=== PATIENT | female | born 1960 | race Caucasian/White ===

== ENCOUNTER 2020-10-05 14:07 | Outpatient (REF) | payer OTHER, SELFPAY ==
--- NOTE | ~2020-10-05 | MM_ITS ---
EXAMINATION: MM SCREENING DIGITAL BREAST TOMOSYNTHESIS, BILATERAL CLINICAL INFORMATION: Screening. Asymptomatic. The lifetime risk of breast cancer based on the Tyrer-Cuzick Model is 9%. COMPARISON: Mammography: 08/24/2017, 05/17/2016 TECHNIQUE: Digital breast tomosynthesis is performed in both the craniocaudal and mediolateral oblique views along with computer-aided detection (CAD). Synthesized 2D images are generated from the tomosynthesis. FINDINGS: The breasts are extremely dense, which lowers the sensitivity of mammography (ACR BI-RADS breast composition Category d). There are no significant masses, abnormal calcifications, or other abnormalities. Parenchymal pattern is similar to prior studies. No significant changes. MM/MM tomosynthesis screening BI IMPRESSION: No mammographic evidence of malignancy. ASSESSMENT: BI-RADS 1: Negative RECOMMENDATION: Routine annual mammography screening. This patient's information was entered into a reminder system with a target due date for their next mammogram.
--- NOTE | ~2020-10-05 | MM_ITS ---
EXAMINATION: BONE DENSITOMETRY CLINICAL INDICATION: Screening for osteoporosis. COMPARISON: None (current study represents initial baseline exam). TECHNIQUE: Using a Tray DXA System (software version: 13.1) manufactured by [employer], dual-energy x-ray absorptiometry was performed of the lumbar spine and left hip. The images are of good technical quality. Summary results are attached. FINDINGS: AP SPINE L1-L4: BMD 0.912 g/cm2, Z-score -0.7, T-score -2.2, osteopenia. LEFT FEMUR, NECK: BMD 0.863 g/cm2, Z-score 0.2, T-score -1.3, osteopenia. LEFT FEMUR, TOTAL: BMD 0.765 g/cm2, Z-score -0.8, T-score -1.9, osteopenia. IDENTIFIED RISK FACTORS: Menopause, low body weight, low calcium intake. HISTORY OF FRACTURE: None listed. MEDICATIONS: None listed. MM/XR DEXA axial skeleton IMPRESSION: 1. DIAGNOSIS: Osteopenia based on the lowest T-score value of -2.2 in the lumbar spine applying World Health Organization criteria. 2. 10-YEAR FRACTURE RISK PREDICTION, FRAX: Major osteoporotic fracture (clinical spine, forearm, hip or shoulder) 5.7%. Hip fracture 0.4%. 3. Treatment Recommendations: NOF guidelines recommend consideration for treatment in postmenopausal women and men age 50 and older presenting with the following: -A hip or vertebral (clinical or morphometric) fracture. -T-score less than or equal to -2.5 at the femoral neck or spine after appropriate evaluation to exclude secondary causes. -Low bone mass at the hip or spine and a 10-year fracture probability by FRAX of greater than or equal to 3% for hip fracture or greater than or equal to 20% for major osteoporotic fracture based on the [place] adapted WHO algorithm. 4. Other Recommendations: All treatment decisions require clinical judgment and consideration of individual patient factors, including patient preferences, comorbidities, previous drug use, risk factors not captured in the FRAX model (e.g. frailty, falls, vitamin D deficiency, increased bone turnover, interval significant decline in bone density) and possible under or overestimation of fracture risk by FRAX. Additional medical evaluation for secondary cause of low bone mineral density may be appropriate. FUTURE SCAN RECOMMENDATION: People with diagnosed cases of osteoporosis or at high risk for fracture should have regular bone mineral density tests. For patients eligible for Medicare, routine testing is allowed once every 2 years. The testing frequency can be increased to one year for patients who have rapidly progressing disease, those who are receiving or discontinuing medical therapy to restore bone mass, or have additional risk factors.
== END 2020-10-05 14:08 | disposition home or self-care (01) ==
LOC: HO.MAMMO 14:07
PROVIDERS: PCP Internal Medicine Medical Oncology; Visit Provider Internal Medicine Medical Oncology
DX: Z13.820 Encounter for screening for osteoporosis (principal); Z78.0 Asymptomatic menopausal state; Z12.31 Encounter for screening mammogram for malignant neoplasm of breast
CPT/HCPCS: 77063; 77067; 77080

== ENCOUNTER 2021-10-25 15:29 | Outpatient (REF) | payer BC, SELFPAY ==
--- NOTE | ~2021-10-25 | MM_ITS ---
EXAMINATION: MM SCREENING DIGITAL BREAST TOMOSYNTHESIS, BILATERAL CLINICAL INFORMATION: Screening. Asymptomatic. The lifetime risk of breast cancer based on the Tyrer-Cuzick Model is 9%. COMPARISON: Mammography: 10/05/2020, 08/24/2017, 05/17/2016 TECHNIQUE: Digital breast tomosynthesis is performed in both the craniocaudal and mediolateral oblique views along with computer-aided detection (CAD). Synthesized 2D images are generated from the tomosynthesis. FINDINGS: The breasts are extremely dense, which lowers the sensitivity of mammography (ACR BI-RADS breast composition Category d). There are no significant masses, abnormal calcifications, or other abnormalities. Parenchymal pattern is similar to prior studies. The axilla and skin contours are unremarkable. MM/MM tomosynthesis screening BI IMPRESSION: No mammographic evidence of malignancy. ASSESSMENT: BI-RADS 1: Negative RECOMMENDATION: Routine annual mammography screening. This patient's information was entered into a reminder system with a target due date for their next mammogram.
== END 2021-10-25 15:30 | disposition home or self-care (01) ==
LOC: HO.MAMMO 15:29
PROVIDERS: Visit Provider Internal Medicine Medical Oncology
DX: Z12.31 Encounter for screening mammogram for malignant neoplasm of breast (principal)
CPT/HCPCS: 77063; 77067

== ENCOUNTER 2022-07-26 09:43 | Outpatient (REF) | payer BC, SELFPAY ==
[2022-07-26 09:53] LABS: MANUAL DIFF FLAG NO
[2022-07-26 10:35] LABS: Basophils Percent Auto 0.8 % (0-2); Eosinophils Absolute Auto 0.1 X10*3/uL (0.0-0.4); Eosinophils Percent Auto 2.3 % (0-4); Hematocrit 42.2 % (37.0-47.0); Hemoglobin 14.4 g/dl (12.0-16.0); Imm Gran Abs Auto 0.01 X10*3/uL (0.00-0.03); Imm Gran Pct Auto 0.3 % (0.0-0.4); Lymphocytes Absolute Auto 1.1 X10*3/uL (1.2-4.9); Lymphocytes Percent Auto 32.2 % (20-40); Mean Corpuscular HGB Conc 34.1 g/dl (31.0-35.0); Mean Corpuscular Hemoglobin 31.4 pg (27.0-33.0); Mean Corpuscular Volume 91.9 fL (80.0-98.0); Mean Platelet Volume 9.2 fL (9.4-12.3); Monocytes Absolute Auto 0.2 X10*3/uL (0.1-1.2); Monocytes Percent Auto 6.8 % (2-11); Neutrophils Percent Auto 57.6 % (45-73); Platelet Count 246 X10*3/uL (160-400); Red Blood Count 4.59 X10*6/uL (4.20-5.50); White Blood Count 3.5 X10*3/uL (4.8-10.8)
[2022-07-26 11:08] LABS: Alanine Aminotransferase 20 U/L (0-31); Albumin Level 4.6 g/dL (3.5-5.0); Alkaline Phosphatase 75 U/L (39-117); Anion Gap 12 (12-20); Aspartate Amino Transferase 22 U/L (5-31); Bilirubin Total 0.8 mg/dL (0.0-1.0); Blood Urea Nitrogen 17 mg/dL (9-16); Calcium 9.9 mg/dL (8.4-10.2); Carbon Dioxide 27 mmol/L (22-29); Chloride 106 mmol/L (96-108); Cholesterol 219 mg/dL; Estimated Glomerular Filt Rate > 60; Ferritin 38 ng/mL (10-250); Glucose Fasting 105 mg/dL (60-99); HDL Cholesterol 78 mg/dL; LDL Cholesterol Calculated 130 mg/dl; Potassium 4.3 mmol/L (3.3-5.1); Sodium 141 mmol/L (135-145); Triglycerides 59 mg/dL
== END 2022-07-26 09:44 | disposition home or self-care (01) ==
LOC: HO.LAB 09:43
PROVIDERS: PCP Internal Medicine Medical Oncology; Visit Provider Internal Medicine Medical Oncology
DX: R63.6 Underweight (principal); E61.1 Iron deficiency
CPT/HCPCS: 36415; 80053; 80061; 82728; 85025

== ENCOUNTER 2022-08-12 09:00 | Outpatient (REF) | payer BC, SELFPAY ==
--- NOTE | ~2022-08-12 | US_ITS ---
EXAMINATION: US PELVIS CLINICAL INFORMATION: Lower abdominal pain COMPARISON: None TECHNIQUE: Ultrasound of the pelvis is performed using both transabdominal and transvaginal transducers along with Doppler. Transvaginal imaging is performed due to inadequate visualization transabdominally. Exam is very limited FINDINGS: The uterus is retroverted and retroflexed and measures 5.5 x 3.2 x 4.4 cm in dimension. Endometrial thickness is slightly increased measuring 0.6 cm. No focal uterine lesion. The ovaries are not seen. There is a moderate amount of ascites. This appears complex mobile low-level internal echoes. There are prominent vessels in left adnexa questionable for pelvic congestion. US/US pelvic and transvaginal IMPRESSION: Very limited exam due to bowel gas. Moderate amount of complex ascites. Etiology is uncertain. Follow-up CT should be considered if clinically indicated. Slightly thickened endometrium measuring 0.6 cm. Ovaries not seen. Prominent vessels in the left adnexa questionable for pelvic congestion. Findings will be communicated by the [facility] work flow network applications specialist.
--- NOTE | ~2022-08-12 | US_ITS ---
EXAMINATION: US ABDOMEN COMPLETE CLINICAL INFORMATION: Lower abdominal pain. COMPARISON: None TECHNIQUE: Real-time imaging of the abdominal viscera. FINDINGS: PANCREAS: Not well visualized due to bowel gas ABDOMINAL AORTA: The proximal, mid, and distal segments are normal in caliber. INFERIOR VENA CAVA: Visualized portions are normal. LIVER: Normal. The liver is normal in size. The liver contour is normal. Parenchymal echogenicity is normal. No focal hepatic lesion. There is no intrahepatic biliary duct dilatation seen. GALLBLADDER: The gallbladder is physiologically distended without evidence of stones, sludge, polyps, wall thickening or pericholecystic fluid. COMMON BILE DUCT: Normal in caliber measuring 0.5 cm in diameter. RIGHT KIDNEY: Normal. No hydronephrosis. No renal calculi or focal parenchymal lesions. The kidney measures 11.3 cm in maximum dimension. LEFT KIDNEY: Normal. No hydronephrosis. No renal calculi or focal parenchymal lesions. The kidney measures 10.3 cm in maximum dimension. SPLEEN: Normal. The spleen measures 9.8 cm in maximum dimension. FREE FLUID: None. US/US abdomen complete IMPRESSION: Limited visualization of the pancreas otherwise unremarkable exam.
== END 2022-08-12 09:01 | disposition home or self-care (01) ==
LOC: HO.US 09:00
PROVIDERS: Visit Provider Internal Medicine Medical Oncology
DX: R10.30 Lower abdominal pain, unspecified (principal)
CPT/HCPCS: 76700; 76830; 76856

== ENCOUNTER 2022-08-13 11:36 | Outpatient (REF) | payer BC, SELFPAY ==
--- NOTE | ~2022-08-13 | CT_ITS ---
EXAMINATION: CT ABDOMEN AND PELVIS WITHOUT AND WITH CONTRAST CLINICAL INFORMATION: Lower abdominal pain. Ascites. COMPARISON: Previous abdominal and pelvic ultrasound from yesterday TECHNIQUE: Multidetector volumetric imaging was performed of the abdomen and pelvis before and after the IV administration of 85 mL of Omnipaque 300 intravenous contrast. Sagittal and coronal reformatted images were obtained on the technologist's workstation. This CT examination was performed using dose optimization techniques as appropriate, variously including the following: *Automated exposure control *Adjustment of mA and/or kV according to patient size (this includes techniques or standardized protocols for targeted exams where dose is matched to indication/reason for exam; i.e. extremities or head) *Use of iterative reconstruction technique DLP: 485 mGy-cm FINDINGS: LUNG BASES: Small 2 mm right lower lobe nodule axial image 12 series 7. LIVER, GALLBLADDER, AND BILIARY TREE: The liver is normal in size, shape, and attenuation. Several small 3 to 4 mm low-attenuation liver lesions. These are difficult to characterize due to small size but probably represent cysts. No other focal liver lesion. The gallbladder is unremarkable with no evidence of radiopaque gallstones, gallbladder wall thickening, or obvious pericholecystic inflammatory changes. PANCREAS: 1.7 cm cyst in the body of the pancreas. The pancreas is otherwise unremarkable. SPLEEN: Unremarkable ADRENAL GLANDS: Unremarkable KIDNEYS AND URETERS: 1 cm cyst in the upper pole of the right kidney. No imaging follow-up. Mild fullness of the right renal pelvis. No definite hydronephrosis. No stone. BLADDER: Unremarkable GASTROINTESTINAL TRACT: There is severe constipation. The colon is slightly dilated. The small bowel is normal. The appendix is not seen. There is food in the stomach and the stomach is slightly distended. The appendix is not seen. ABDOMINAL WALL: No significant hernia is appreciated. LYMPH NODES: Normal VASCULAR: Prominent left ovarian veins and reflux PELVIC VISCERA: Unremarkable OSSEOUS STRUCTURES: Unremarkable CT/CT abdomen pelvis wo/w IV con IMPRESSION: Severe constipation/obstipation. Distended fluid filled stomach. No ascites seen. 1.7 cm cyst in the body of the pancreas. Follow-up MR of the pancreas with MRCP recommended. Small left renal cyst. Probable small liver cysts. Prominent left ovarian vein and reflux questionable for pelvic congestion. Fleischner guidelines were followed.
[2022-08-13] MEDS: iohexoL 350 MG/ML 100 ML INFUS..BTL 85 ML IV (14:27)
[2022-08-13] MEDS: Barium Sulfate Oral (Mocha) 450 ML ORAL.SUSP 900 ML PO (14:28)
== END 2022-08-13 11:37 | disposition home or self-care (01) ==
LOC: HO.CT 11:36
PROVIDERS: Visit Provider Internal Medicine Medical Oncology
DX: R10.30 Lower abdominal pain, unspecified (principal); R18.8 Other ascites
CPT/HCPCS: 74178; Q9967

== ENCOUNTER 2022-10-31 15:29 | Outpatient (REF) | payer BC, SELFPAY ==
--- NOTE | ~2022-10-31 | MM_ITS ---
EXAMINATION: MM SCREENING DIGITAL BREAST TOMOSYNTHESIS, BILATERAL CLINICAL INFORMATION: Screening. Asymptomatic. The lifetime risk of breast cancer based on the Tyrer-Cuzick Model is 9%. COMPARISON: Mammography: 10/25/2021, 10/05/2020, 08/24/2017 TECHNIQUE: Digital breast tomosynthesis is performed in both the craniocaudal and mediolateral oblique views along with computer-aided detection (CAD). Synthesized 2D images are generated from the tomosynthesis. FINDINGS: The breasts are extremely dense, which lowers the sensitivity of mammography (ACR BI-RADS breast composition Category d). There are no significant masses, abnormal calcifications, or other abnormalities. No architectural abnormality or developing density or significant change from prior studies. The axilla are unremarkable. MM/MM tomosynthesis screening BI IMPRESSION: No mammographic evidence of malignancy. ASSESSMENT: BI-RADS 1: Negative RECOMMENDATION: Routine annual mammography screening. This patient's information was entered into a reminder system with a target due date for their next mammogram.
== END 2022-10-31 15:30 | disposition home or self-care (01) ==
LOC: HO.MAMMO 15:29
PROVIDERS: PCP Internal Medicine Medical Oncology; Visit Provider Internal Medicine Medical Oncology
DX: Z12.31 Encounter for screening mammogram for malignant neoplasm of breast (principal)
CPT/HCPCS: 77063; 77067

== ENCOUNTER 2023-01-09 11:27 | Outpatient (REF) | payer BC, SELFPAY | END 2023-01-09 11:28 | disposition home or self-care (01) | LOC: HO.10HDLNP 11:27 | PROVIDERS: Visit Provider Internal Medicine Medical Oncology | DX: H10.9 Unspecified conjunctivitis (principal) | CPT/HCPCS: 87070; 87147; 87205 ==

== ENCOUNTER 2023-04-27 16:24 | Outpatient (REF) | payer BC, SELFPAY ==
--- NOTE | ~2023-04-27 | MR_ITS ---
EXAMINATION: MR ABDOMEN WITHOUT AND WITH CONTRAST CLINICAL INFORMATION: Prior abnormal imaging. COMPARISON: CT abdomen/pelvis 08/13/2022 TECHNIQUE: MR abdomen was performed without and with use of 5 mL intravenous Gadavist gadolinium contrast. Postcontrast images are performed in multiphase dynamic sequences. Imaging was performed in 3 planes. FINDINGS: LUNG BASES: No pleural or pericardial effusion. LIVER, GALLBLADDER, AND BILIARY TREE: The liver is normal in size and contour. Hepatic steatosis. No focal hepatic lesion or biliary ductal dilatation is present. The common duct measures 7 mm at the nilesh hepatis. The gallbladder is unremarkable with no evidence of gallbladder wall thickening, or obvious pericholecystic inflammatory changes. PANCREAS: Atrophic. No ductal dilatation. 1.7 x 1.7 x 1.8 cm cystic lesion in the distal body of the pancreas. 1.0 x 1.1 x 1.5 cm cystic lesion in the head of the pancreas. There is likely a third cystic lesion in the uncinate process measuring 1.0 x 1.0 x 1.5 cm. No abnormal enhancement. There is possible communication with the main pancreatic duct. SPLEEN: Not enlarged. ADRENAL GLANDS: No adrenal mass. KIDNEYS AND URETERS: The kidneys are symmetric in size and enhancement. No hydronephrosis. No perinephric stranding. GASTROINTESTINAL TRACT: No bowel obstruction. Marked fecal retention in the colon. No ascites abdominal ascites. ABDOMINAL WALL: No significant hernia is appreciated. LYMPH NODES: No bulky abdominal lymphadenopathy. VASCULAR: Normal caliber abdominal aorta. MR/MR abdomen wo/w con IMPRESSION: Cystic lesions in the head and body and uncinate process of the pancreas as described above. 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 Follow-up imaging in 6 months is advised to assess stability.
[2023-04-27] MEDS: gadobutroL 7.5 ML VIAL IVPUSH (17:21)
== END 2023-04-27 16:25 | disposition home or self-care (01) ==
LOC: HO.MRI 16:24
PROVIDERS: PCP Internal Medicine Medical Oncology; Visit Provider Internal Medicine Medical Oncology
DX: K86.2 Cyst of pancreas (principal)
CPT/HCPCS: 74183; A9585

== ENCOUNTER 2024-04-01 09:00 | Outpatient (REF) | payer BC, SELFPAY ==
[2024-04-01 09:17] LABS: MANUAL DIFF FLAG NO
[2024-04-01 09:36] LABS: Basophils Percent Auto 1.1 % (0-2); Eosinophils Absolute Auto 0.1 X10*3/uL (0.0-0.4); Eosinophils Percent Auto 2.8 % (0-4); Hematocrit 40.7 % (37.0-47.0); Hemoglobin 14.1 g/dl (12.0-16.0); Lymphocytes Percent Auto 29.3 % (20-40); Mean Corpuscular HGB Conc 34.6 g/dl (31.0-35.0); Mean Corpuscular Hemoglobin 31.5 pg (27.0-33.0); Mean Corpuscular Volume 90.8 fL (80.0-98.0); Mean Platelet Volume 8.7 fL (9.4-12.3); Monocytes Absolute Auto 0.3 X10*3/uL (0.1-1.2); Monocytes Percent Auto 8.2 % (2-11); Neutrophils Absolute Auto 2.1 x10*3/uL (2.0-8.3); Neutrophils Percent Auto 58.6 % (45-73); Platelet Count 219 X10*3/uL (160-400); Red Blood Count 4.48 X10*6/uL (4.20-5.50); Red Cell Distribution Width 12.3 % (11.0-16.0); White Blood Count 3.6 X10*3/uL (4.8-10.8)
[2024-04-01 10:12] LABS: Alanine Aminotransferase 20 U/L (0-31); Albumin Level 4.4 g/dL (3.5-5.0); Alkaline Phosphatase 67 U/L (39-117); Anion Gap 10 (12-20); Aspartate Amino Transferase 24 U/L (5-31); Bilirubin Total 0.7 mg/dL (0.0-1.0); Blood Urea Nitrogen 21 mg/dL (9-16); Calcium 9.9 mg/dL (8.4-10.2); Carbon Dioxide 29 mmol/L (22-29); Chloride 108 mmol/L (96-108); Cholesterol 203 mg/dL (<200); Estimated Glomerular Filt Rate > 60; Glucose Fasting 103 mg/dL (60-99); HDL Cholesterol 75 mg/dL (>40); LDL Cholesterol Calculated 118 mg/dL (<100); Sodium 143 mmol/L (135-145); Total Protein 7.2 g/dL (6.5-8.0); Triglycerides 52 mg/dL (<150)
[2024-04-01 10:26] LABS: Ferritin 51 ng/mL (10-250)
[2024-04-05 09:04] LABS: Carbohydrate Antigen 19-9 11 U/mL (<34)
== END 2024-04-01 09:01 | disposition home or self-care (01) ==
LOC: HO.LAB 09:00
PROVIDERS: PCP Internal Medicine Medical Oncology; Visit Provider Internal Medicine Medical Oncology
DX: K86.2 Cyst of pancreas (principal); R63.6 Underweight; E61.1 Iron deficiency; E78.5 Hyperlipidemia, unspecified
CPT/HCPCS: 36415; 80053; 80061; 82728; 85025; 86301

== ENCOUNTER 2024-04-08 08:23 | Outpatient (REF) | payer BC, SELFPAY ==
--- NOTE | ~2024-04-08 | MM_ITS ---
EXAMINATION: MM SCREENING DIGITAL BREAST TOMOSYNTHESIS, BILATERAL CLINICAL INFORMATION: Screening. Asymptomatic. COMPARISON: Mammography: This study is compared with prior exams dating back to 2018. TECHNIQUE: Digital breast tomosynthesis is performed in both the craniocaudal and mediolateral oblique views along with computer-aided detection (CAD). Synthesized 2D images are generated from the tomosynthesis. FINDINGS: There are scattered areas of fibroglandular density (ACR BI-RADS breast composition Category b). There are no significant masses, abnormal calcifications, or other abnormalities. MM/MM tomosynthesis screening BI IMPRESSION: No mammographic evidence of malignancy. ASSESSMENT: BI-RADS BI-RADS 1 - Negative RECOMMENDATION: Routine annual mammography screening. 1 year F/U This examination should not preclude the clinical evaluation of a suspicious palpable abnormality. This patient's information was entered into a reminder system with a target due date for their next mammogram. Electronically signed by: Bing Best MD 05/05/2024 09:04 AM EDT
== END 2024-04-08 08:24 | disposition home or self-care (01) ==
LOC: HO.MAMMO 08:23
PROVIDERS: PCP Internal Medicine Medical Oncology; Visit Provider Internal Medicine Medical Oncology
DX: Z12.31 Encounter for screening mammogram for malignant neoplasm of breast (principal)
CPT/HCPCS: 77063; 77067

== ENCOUNTER → 2024-04-08 08:30 | Outpatient (BNV) | payer BC, SELFPAY | PROVIDERS: PCP Internal Medicine Medical Oncology; Visit Provider Radiology Diagnostic Radiology | DX: Z12.31 Encounter for screening mammogram for malignant neoplasm of breast (principal) | CPT/HCPCS: 77063; 77067 ==

== ENCOUNTER 2024-04-20 15:43 | Outpatient (REF) | payer BC, SELFPAY ==
--- NOTE | ~2024-04-20 | MR_ITS ---
EXAMINATION: MR ABDOMEN WITHOUT AND WITH CONTRAST CLINICAL INFORMATION: Follow-up evaluation. COMPARISON: April 27, 2023 TECHNIQUE: MR abdomen was performed without and with use of 5 mL intravenous Gadavist gadolinium contrast. Postcontrast images are performed in multiphase dynamic sequences. Imaging was performed in 3 planes. MRCP was also performed. FINDINGS: LUNG BASES: No pleural or pericardial effusion. LIVER, GALLBLADDER, AND BILIARY TREE: The liver is normal in size, smooth in contour, and normal in signal. No focal hepatic lesion. The common duct measures 6 mm at the nilesh hepatis. No intrahepatic biliary ductal dilatation. No intraductal filling defects. The gallbladder is unremarkable with no evidence of gallbladder wall thickening, or obvious pericholecystic inflammatory changes. PANCREAS: No ductal dilatation. There are persistent and stable multiloculated cystic lesions present within the uncinate process, head and and distal body/tail of the pancreas. No abnormal enhancement. There is likely ductal communication. The size and morphology are similar to prior. No peripancreatic stranding. SPLEEN: Not enlarged. ADRENAL GLANDS: No adrenal mass. KIDNEYS AND URETERS: The kidneys are normal in size, shape, and enhance symmetrically. No hydronephrosis. No perinephric stranding. GASTROINTESTINAL TRACT: No bowel obstruction. No ascites or fluid collection. ABDOMINAL WALL: No significant hernia is appreciated. LYMPH NODES: No lymphadenopathy. VASCULAR: Normal caliber abdominal aorta. The left gonadal vein appears prominent. MR/MR abdomen wo/w con IMPRESSION: Stable examination with no significant interval change in size or morphology of cystic lesions present within the uncinate process, head and distal body/tail of the pancreas. Follow-up imaging in 6 months is recommended. Electronically signed by: Booker Ramirez MD 04/21/2024 08:39 AM EDT
[2024-04-20] MEDS: gadobutroL 10 ML VIAL IVPUSH (16:28)
== END 2024-04-20 15:44 | disposition home or self-care (01) ==
LOC: HO.MRI 15:43
PROVIDERS: PCP Internal Medicine Medical Oncology; Visit Provider Internal Medicine Medical Oncology
DX: K86.0 Alcohol-induced chronic pancreatitis (principal); K86.2 Cyst of pancreas
CPT/HCPCS: 74183; A9585

== ENCOUNTER 2025-01-13 09:24 | Outpatient (REF) | payer BC, SELFPAY ==
--- OUTSIDE RECORDS SUMMARY | 2025-01-13 09:43 | XMS_ITS | Patient Health Record ---
Author Organization Serge Lynn III, MD Address [address] [place] [address] Care Team Providers Care Arc Trimmer Name Role Phone Serge Lynn Primary Care Provider Allergies Allergen (clinical drug ingredient) Drug/Non Drug Allergy documented on EMR Reaction Allergy Type Onset Date Status Mold Unknown Allergy Active Dust Mites Unknown Allergy Active Seasonale Unknown Drug Allergy Active sulfamethoxazole / trimethoprim Bactrim DS Unknown Drug Allergy Active doxycycline Doxycycline Unknown Drug Allergy Act kev Results Component Value Reference Range Notes Complete Blood Count Auto Di ff Reviewed date:04/03/2024 06:35:19 AM Interpretation: Performing Lab:[facility], [address] [place] [phone] Notes/Report: White Blood Count 3.6 4.8-10.8 X10*3/uL Red Blood Count 4.48 4.20-5.50 X10*6/uL Hemoglobin 14.1 12.0-16.0 g/dl Hematocrit 40.7 37.0-47.0 % Mean Corpuscular Volume 90.8 80.0-98.0 fL Mean Corpuscular Hemoglobin 31.5 27.0-33.0 pg Mean Corpuscular HGB Conc 34.6 31.0-35.0 g/dl Red Cell Distribution Width 12.3 11.0-16.0 % Platelet Count 219 160-400 X10*3/uL Mean Platelet Volume 8.7 9.4-12.3 fL Neutrophils Percent Auto 58.6 45-73 % Imm Gran Pct Auto 0.0 0.0-0.4 % Lymphocytes Percent Auto 29.3 20-40 % Monocytes Percent Auto 8.2 2-11 % Eosinophils Percent Auto 2.8 0-4 % Basophils Percent Auto 1.1 0-2 % NRBC Pct Auto 0.0 0.0-0.2 /100WBC Neutrophils Absolute Auto 2.1 2.0-8.3 x10*3/uL Imm Gran Abs Auto 0.00 0.00-0.03 X10*3/uL Lymphocytes Absolute Auto 1.0 1.2-4.9 X10*3/uL Monocytes Absolute Auto 0.3 0.1-1.2 X10*3/uL Eosinophils Absolute Auto 0.1 0.0-0.4 X10*3/uL Basophils Absolute Auto 0.0 0.0-0.2 X10*3/uL NRBC Abs Auto 0.000 0.0-0.012 X10*3/uL Comprehensive Novelty. Panel Fa st Reviewed date:04/03/2024 06:35:19 AM Interpretation: Performing Lab:[facility], [address] [place] [phone] Notes/Report: Sodium 143 135-145 mmol/L Potassium 4.0 3.3-5.1 mmol/L Chloride 108 96-108 mmol/L Carbon Dioxide 29 22-29 mmol/L Anion Gap 10 12-20 Blood Urea Nitrogen 21 9-16 mg/dL Creatinine 0.89 0.5-1.4 mg/dL Estimated Glomerular Filt Rate > 60 NOTE: For -[place] individuals, multiply the result by 1.210. Chronic Kidney Disease: Estimated GFR < 60 mL/min/1.73m2 Severe Kidney Disease: Estimated GFR < 15 mL/min/1.73m2 Glucose Fasting 103 60-99 mg/dL A fasting glucose from 100-125 mg/dl is considered impaired (pre-diabetes). Calcium 9.9 8.4-10.2 mg/dL Bilirubin Total 0.7 0.0-1.0 mg/dL Aspartate Amino Transferase 24 5-31 U/L Alanine Aminotransferase 20 0-31 U/L Total Protein 7.2 6.5-8.0 g/dL Albumin Level 4.4 3.5-5.0 g/dL Alkaline Phosphatase 67 39-117 U/L Ferritin Reviewed date:04/03/2024 06:35:19 AM Interpretation: Performing Lab:[facility], [address] [place] [phone] Notes/Report: Ferritin 51 10-250 ng/mL Lipid Panel Reviewed date:04/03/2024 06:35:19 AM Interpretation: Performing Lab:[facility], [address] [place] [phone] Notes/Report: Triglycerides 52 <150 mg/dL Desirable Triglyceride: less than 150 mg/dL Borderline High Triglyceride 150-199 mg/dL High Triglyceride: 200-499 mg/dL Very High Triglyceride: greater than or equal to 5OO mg/dL Cholesterol 203 <200 mg/dL Desirable Cholesterol: less than 200 mg/dL Borderline High Cholesterol: 200-239 mg/dL High Cholesterol: greater than 239 mg/dL LDL Cholesterol Calculated 118 <100 mg/dL Desirable LDL: less than 100 mg/dL Near Optimal/Above Optimal LDL: 110-129 mg/dL Borderline High LDL: 130-159 mg/dL High LDL: 160-189 mg/dL Very High LDL: greater than or equal to 190 mg/dL HDL Cholesterol 75 >40 mg/dL Desirable HDL: greater than 40 mg/dL Note: This HDL assay may give artificially low results in patients with liver disease. Carbohydrate Antigen 19-9 Reviewed date:04/17/2024 07:27:43 AM Interpretation: Performing Lab:[facility], [address] [place] [phone] Notes/Report: Carbohydrate Antigen 19-9 11 <34 U/mL This test was performed using the Siemens chemiluminescent method. Values obtained from different assay methods cannot be used interchangeably. CA 19-9 levels, regardless of value, should not be interpreted as absolute evidence of the presence or absence of disease. THIS TEST WAS PERFORMED AT: [facility] [address] [place] [phone] BYRON GUTIERREZ MD MM tomosynthesis screening B I Reviewed date:05/16/2024 06:08:52 AM Interpretation: Performing Lab: Notes/Report: [facility] [address] [place] [address] Mammography Report Signed Patient: Rosmery Huizar MR#: [id number] 70 : 1960 Acct:[id number] Age/Sex: 63 / F ADM Date: 04/08/24 Loc: JACK[facility] Attending Dr: Serge Lynn MD Ordering Physician: Serge Lynn MD Results: 1Negativ e Date of Service: 04/08/24 Follow Up: 1 Year From Orig inal Mammogram Procedure(s): MM tomosynthesis screening BI Accession Number(s): [id number] cc: Serge Lynn MD EXAMINATION: MM SCREENING DIGITAL BREAST TOMOSYNTHESIS, BILATERAL CLINICAL INFORMATION: Screening. Asymptomatic. COMPARISON: Mammography: This study is compared with prior exams dating back to 2018. TECHNIQUE: Digital breast tomosynthesis is performed in both the craniocaudal and mediolateral oblique views along with computer-aided detection (CAD). Synthesized 2D images are generated from the tomosynthesis. FINDINGS: There are scattered areas of fibroglandular density (ACR BI-RADS breast composition Category b). There are no significant masses, abnormal calcifications, or other abnormalities. MM/MM tomosynthesis screening BI IMPRESSION: No mammographic evidence of malignancy. ASSESSMENT: BI-RADS BI-RADS 1 - Negative RECOMMENDATION: Routine annual mammography screening. 1 year F/U This examination should not preclude the clinical evaluation of a suspicious palpable abnormality. This patient's information was entered into a reminder system with a target due date for their next mammogram. Electronically signed by: Bing Best MD 05/05/2024 09:04 AM EDT Dictated By: Bing Best MD Signed By: <Electronically signed by Bing Best MD in OV> 05/05/24 0904 DD/ 0830 TD/TT: 04/08/24 0850 Strategic Sourcing Manager: [facility] [address] [place] [address] Mammography Report Signed Patient: Raisa Huizar MR#: [id number] 72 : 1960 Acct:[id number] Age/Sex: 63 / F ADM Date: 04/08/24 Loc: JACKIE Attending Dr: Serge Lynn MD Ordering Physician: Serge Lynn MD Results: 1Negativ e Date of Service: 04/08/24 Follow Up: 1 Year From Orig inal Mammogram Procedure(s): MM tomosynthesis screening BI Accession Number(s): [id number] cc: Serge Lynn MD EXAMINATION: MM SCREENING DIGITAL BREAST TOMOSYNTHESIS, BILATERAL CLINICAL INFORMATION: Screening. Asymptomatic. COMPARISON: Mammography: This st udy is compared with prior exams dating back to 2018. TECHNIQUE: Digital breast tomosynthesis is performed in both the craniocaudal and mediolateral oblique views along with computer-aided detection (CAD). Synthesized 2D image s are generated from the tomosynthesis. FINDINGS: There are scattered areas of fibroglandular density (ACR BI-RADS breast composition Category b). There are no signifi cant masses, abnormal calcifications, or other abnormalities. M M/MM tomosynthesis screening BI IMPRESSION: No mammographic evid ence of malignancy. ASSESSMENT: BI-RADS BI-RADS 1 - Negative RECOMMENDATION: Routine annual mammography screening. 1 year F/U This examination willie uld not preclude the clinical evaluation of a suspicious palpable abnormality. This patient's information was entered into a reminder system with a target due date for their next mammogram. Electronically uday d by: Bing Best MD 05/05/2024 09:04 AM EDT RP Dictated By: Bing Best MD Signed By: <Electronically signed by Bing Best MD in OV> 05/05/24 0904 DD/ 0830 TD/TT: 04/08/24 0850 Strategic Sourcing Manager: MR abdomen wo/w con Reviewed date:05/16/2024 06:08:52 AM Interpretation: Performing Lab: Notes/Report: [address] [address] Magnetic Resonance Report Signed Patient: Rosmery Huizar MR#: [id number] 72 : 1960 Acct:[id number] Age/Sex: 63 / F ADM Date: 04/20/24 Loc: HO.MRI Attending Dr: Serge Lynn MD Ordering Physician: Serge Lynn MD Date of Service: 04/20/24 Procedure(s): MR abdomen wo/w con Accession Number(s): [id number] cc: Serge Lynn MD EXAMINATION: MR ABDOMEN WITHOUT AND WITH CONTRAST CLINICAL INFORMATION: Follow-up evaluation. COMPARISON: April 27, 2023 TECHNIQUE: MR abdomen was performed without and with use of 5 mL intravenous Gadavist gadolinium contrast. Postcontrast images are performed in multiphase dynamic sequences. Imaging was performed in 3 planes. MRCP was also performed. FINDINGS: LUNG BASES: No pleural or pericardial effusion. LIVER, GALLBLADDER, AND BILIARY TREE: The liver is normal in size, smooth in contour, and normal in signal. No focal hepatic lesion. The common duct measures 6 mm at the nilesh hepatis. No intrahepatic biliary ductal dilatation. No intraductal filling defects. The gallbladder is unremarkable with no evidence of gallbladder wall thickening, or obvious pericholecystic inflammatory changes. PANCREAS: No ductal dilatation. There are persistent and stable multiloculated cystic lesions present within the uncinate process, head and and distal body/tail of the pancreas. No abnormal enhancement. There is likely ductal communication. The size and morphology are similar to prior. No peripancreatic stranding. SPLEEN: Not enlarged. ADRENAL GLANDS: No adrenal mass. KIDNEYS AND URETERS: The kidneys are normal in size, shape, and enhance symmetrically. No hydronephrosis. No perinephric stranding. GASTROINTESTINAL TRACT: No bowel obstruction. No ascites or fluid collection. ABDOMINAL WALL: No significant hernia is appreciated. LYMPH NODES: No lymphadenopathy. VASCULAR: Normal caliber abdominal aorta. The left gonadal vein appears prominent. MR/MR abdomen wo/w con IMPRESSION: Stable examination with no significant interval change in size or morphology of cystic lesions present within the uncinate process, head and distal body/tail of the pancreas. Follow-up imaging in 6 months is recommended. Electronically signed by: Booker Ramirez MD 04/21/2024 08:39 AM EDT Dictated By: Bobby Ramirez MD Signed By: <Electronically signed by Bobby Ramirez MD in OV> 04/21/24 0839 DD/ 1605 TD/TT: 04/20/24 1621 Strategic Sourcing Manager: [address] [address] Magnetic Resonance Report Signed Patient: Raisa Huizar MR#: [id number] 72 : 1960 Acct:[id number] Age/Sex: 63 / F ADM Date: 04/20/24 Loc: HO.MRI Attending Dr: Serge Lynn MD Ordering Physician: Serge Lynn MD Date of Service: 04/20/24 Procedure(s): MR [place] wo/w con Accession Number(s): [id number] cc: Serge Lynn MD EXAMINATION: MR ABDOMEN WITHOUT A ND WITH CONTRAST CLINICAL INFORMATION: Follow-up evaluation. COMPARISON: April 27, 2023 TECHNIQUE: MR abdomen was perfo rmed without and with use of 5 mL intravenous Gadavist gadolinium contrast. Postcontrast images are performed in multiphase dynamic sequences. Imaging was performed in 3 planes. MRCP was also performed. FINDINGS: LUNG BASES: No pleur al or pericardial effusion. LIVER, GALLBLADDER, AND BILIARY TREE: The liver is normal in size, smooth in contour, a nd normal in signal. No focal hepatic lesion. The common duct measures 6 mm at the nilesh hepatis. No intrahepatic biliary ductal dilatation. N o intraductal filling defects. The gallbladder is unremarkable with no evidence of gallbladder wall thickening, or obvious pericholecys tic inflammatory changes. PANCREAS: No ductal dilatation. There are persistent and stable multiloculated cysti c lesions present within the uncinate process, head and and distal body/ tail of the pancreas. No abnormal enhancement. There is likely duct al communication. The size and morphology are similar to prior. No peripancreatic stranding. SPLEEN: Not enlarged. ADRENAL GLANDS: No adrenal mass. KIDNEYS AND URETERS: The kidneys are normal in size, shape, and enhance symmetrically. No hydronephrosis. No perinephric stranding. GASTROINTESTINAL TRA CT: No bowel obstruction. No ascites or fluid collection. ABDOMINAL WALL: No significant hernia is appreciated. LYMPH NODES: No lymphadenopathy. VASCULAR: Normal louann iber abdominal aorta. The left gonadal vein appears prominent. M R/MR abdomen wo/w con IMPRESSION: Stable examination w ith no significant interval change in size or morphology of cystic lesions present within the uncinate process, head and distal body/tail of the pancreas. Follow-up imaging in 6 months is recommended. Electronically uday d by: Booker Ramirez MD 04/21/2024 08:39 AM EDT RP Dictated By: Bobby Ramirez MD Signed By: <Electronically signed by Bobby Ramirez MD in OV> 04/21/24 0839 DD/ 1605 TD/TT: 04/20/24 1621 Strategic Sourcing Manager: Reason For Referral No Information Medications Medication SIG (Take, Route, Frequency, Duration) Notes Start Date End Date Status ZyrTEC-D Allergy & Congestion 5-120 MG 1 tablet Orally Twice a day Active Excedrin Migraine 250-250-65 MG 2 tablets Orally Once a day Active Immunizations Vaccine Route Administration Date Status Comme nts COVID PFIZER Unknown 07/29/2021 Administered COVID 19 Moderna Unknown 12/13/2020 Administered COVID 19 Moderna Unknown 11/15/2020 Administered Decline: Influenza Unknown 05/12/2014 Refused Social History Tobacco Use: Social History Observation Description Date Details (start date - stop date) Never Smoker NA - NA Sex Assigned At : Social History Observation Description Sex Assigned At Female Tobacco Use/Smoking Question Answer Notes Patient is a nonsmoker Additional Findings: Tobacco Non-User Aggressive non-smoker Alcohol Screen Question Answer Notes Did you have a drink contain ing alcohol in the past year? Yes How often did you have a dri nk containing alcohol in the past year? 2 to 4 times a month (2 points) How many drinks did you have on a typical day when you were drinking in the past year? 1 or 2 drinks (0 point) How often did you have 6 or more drinks on one occasion in the past year? Never (0 point) Points 2 Interpretation Negative Problems Problem Type SNOMED Code ICD Code Onset Dates Problem Status W/U Status Risk Notes Problem 070748985 Underweight (R63.6) Active confirmed Her weight is stable. She has gained 1 pound. We have diiscussedd diet and nutriition today. Problem 71320336 Iron deficiency (E61.1) Active confirmed She was continued on current therapy. Problem 443023453 Stress incontinence (female) (male) (N39.3) Active confirmed She was referred to Dr. Kamilla Curtis of urology for treatment. Problem 17448720 Pancreatic cyst (K86.2) Active confirmed She will soon be due for repeat imaging of this abnormality. She is asymptomatic. A CA 19.9 Is normal. A repeat MRI has been ordered. Problem Osteoporosis (M81.0) Active confirmed Problem 575516118 Environmental allergies (Z91.09) Active confirmed Her allergies are mild dysuria and she is doing well with no change in treatment. Problem 24275277 Migraine NOS/not intrcbl (G43.009) Active confirmed Her headaches are rare and occasional and well controlled. No change in her regimen was needed today. Problem 84497478 Hyperlipidemia, unspecified hyperlipidemia type (E78.5) Active confirmed Comprehensive blood work has been ordered. No change in her regimen was made. Problem 00779482 Degenerative joint disease of right shoulder (M19.011) Active confirmed She will continue to see the orthopedist. Vital Signs Heart Rate 57 /min 04/08/2024 Blood pressure diastolic 61 mm Hg 04/08/2024 Height 68 in 04/08/2024 Blood pressure systolic 110 mm Hg 04/08/2024 Weight 118 lbs 04/08/2024 BMI 17.94 kg/m2 04/08/2024 Encounters Encounter Location Date Provider Diagnosis Serge Lynn III, MD [address] [place] [address] [place] [address] 04/08/2024 Serge Lynn Pancreatic cyst K86. 2 ; Migraine NOS/not intrcbl G43.009 ; Underweight R63.6 ; Iron deficiency E61.1 ; Degenerative joint disease of right shoulder M19.011 and Stress incontinence (female) (male) N39.3 Serge Lynn III, MD [address] [place] [address] [place] [phone] 07/10/2024 Serge Lynn III, MD [address] [place] [address] [place] [address] 07/10/2024 Serge Lynn Assessments Encounter Date Diagnosis (ICD Code) Assessment Notes Treat ment Notes Treatment Clinical Notes 04/08/2024 Pancreatic cyst (ICD-10 - K86.2) She will soon be due for repeat imaging of this abnormality. She is asymptomatic. A CA 19.9 Is normal. A repeat MRI has been ordered. 04/08/2024 Migraine NOS/not intrcbl (ICD-10 - G43.009) Her headaches are rare and occasional and well controlled. No change in her regimen was needed today. 04/08/2024 Underweight (ICD-10 - R63.6) Her weight is stable. She has gained 1 pound. We have diiscussedd diet and nutriition today. 04/08/2024 Iron deficiency (ICD-10 - E61.1) She was continued on current therapy. 04/08/2024 Degenerative joint disease of right shoulder (ICD-10 - M19.011) She will continue to see the orthopedist. 04/08/2024 Stress incontinence (female) (male) (ICD-10 - N39.3) She was referred to Dr. Kamilla Curtis of urology for treatment. Plan Of Treatment Pending Test Test Name Order Date PROFILE, FASTING (COMPREHENSIVE METABOLI C) 07/20/2020 PROFILE, FASTING (COMPREHENSIVE METABOLI C) 08/25/2018 PROFILE, FASTING (COMPREHENSIVE METABOLI C) 08/03/2023 PROFILE, FASTING (COMPREHENSIVE METABOLI C) 09/09/2021 PROFILE, FASTING (COMPREHENSIVE METABOLI C) 12/14/2023 PROFILE, RANDOM (COMPREHENSIVE METABOLIC ) 05/20/2023 PROFILE, RANDOM (COMPREHENSIVE METABOLIC ) 09/22/2022 PROFILE, RANDOM (COMPREHENSIVE METABOLIC ) 04/08/2024 LIPID PANEL 07/20/2020 LIPID PANEL 08/25/2018 LIPID PANEL 09/22/2022 FERRITIN 09/09/2021 CEA 05/20/2023 CEA 08/03/2023 CBC w DIFF 09/22/2022 CBC w DIFF 09/09/2021 CBC w DIFF 07/20/2020 CBC w DIFF 08/25/2018 CARBOHYDRATE ANTIGEN 19-9 (CA 19-9) 03/18 CARBOHYDRATE ANTIGEN 19-9 (CA 19-9) 11/16 CARBOHYDRATE ANTIGEN 19-9 (CA 19-9) 10/11/2022 CARBOHYDRATE ANTIGEN 19-9 (CA 19-9) 07/17 ROUTINE CULTURE 08/01/2013 ROUTINE CULTURE 11/01/2018 MRI ABD W&WO CONTRAST 04/08/2024 BONE DENSITY DEXA 08/03/2023 MAMMOGRAM DIGITAL BILATERAL SCREEN 08/03 VITAMIN D 25-OH TOTAL 09/22/2022 VITAMIN D 25-OH TOTAL 07/20/2020 CBC WITH AUTO DIFF 05/20/2023 CBC WITH AUTO DIFF 08/03/2023 CBC WITH AUTO DIFF 04/08/2024 CBC WITH AUTO DIFF 12/14/2023 Mixing Study (PT/PTT) 05/20/2023 Ferritin 12/14/2023 Lipid Panel 08/03/2023 Lipid Panel 09/09/2021 Lipid Panel 12/14/2023 Amylase 05/20/2023 Lipase 05/20/2023 Routine Culture 01/09/2023 Next Appt Details Provider Name:Serge Lynn, 01/23/2025 03:45:00 PM, [address] [place] [address] [address], [place], [phone], Provider Name:Serge Lynn, 05/02/2025 04:00:00 PM, [address] [place] [address] [address], [place], [phone], Insurance Providers Payer Name Payer Address Payer Phone Subscriber Number Group Number Insured Name Patient Relationship to Insured Coverage Start Date Coverage End Date [facility] [address] [place], [place] [id number] Rosmery Huizar Self - patient is the insured Medical (General) History Medical History History ICD Code chronic fatigue syndrome migraine headaches chronic low back pain last bilateral mammogram 08/2012 @ iron deficiency anemia underweight paronychia him left first toe June 05 1.7 cm pancreatic cyst July 2022 Surgical History Surgery Date(Month/Year) Biopsy of cervix 04/2018
[2025-01-13 09:44] LABS: MANUAL DIFF FLAG NO
[2025-01-13 10:34] LABS: Basophils Percent Auto 0.9 % (0-2); Eosinophils Absolute Auto 0.1 X10*3/uL (0.0-0.4); Eosinophils Percent Auto 2.3 % (0-4); Hematocrit 41.5 % (37.0-47.0); Hemoglobin 13.9 g/dl (12.0-16.0); Imm Gran Abs Auto 0.02 X10*3/uL (0.00-0.03); Imm Gran Pct Auto 0.6 % (0.0-0.4); Lymphocytes Absolute Auto 0.8 X10*3/uL (1.2-4.9); Lymphocytes Percent Auto 24.3 % (20-40); Mean Corpuscular HGB Conc 33.5 g/dl (31.0-35.0); Mean Corpuscular Volume 92.6 fL (80.0-98.0); Mean Platelet Volume 9.4 fL (9.4-12.3); Monocytes Absolute Auto 0.2 X10*3/uL (0.1-1.2); Monocytes Percent Auto 6.5 % (2-11); Neutrophils Absolute Auto 2.2 x10*3/uL (2.0-8.3); Neutrophils Percent Auto 65.4 % (45-73); Platelet Count 212 X10*3/uL (160-400); Red Blood Count 4.48 X10*6/uL (4.20-5.50); Red Cell Distribution Width 12.1 % (11.0-16.0); White Blood Count 3.4 X10*3/uL (4.8-10.8)
[2025-01-13 11:06] LABS: Alanine Aminotransferase 24 U/L (0-31); Albumin Level 4.4 g/dL (3.5-5.0); Alkaline Phosphatase 78 U/L (39-117); Anion Gap 12 (12-20); Aspartate Amino Transferase 24 U/L (5-31); Bilirubin Total 0.7 mg/dL (0.0-1.0); Blood Urea Nitrogen 21 mg/dL (9-16); Calcium 9.4 mg/dL (8.4-10.2); Carbon Dioxide 27 mmol/L (22-29); Chloride 109 mmol/L (96-108); Estimated Glomerular Filt Rate > 60; Glucose Random 108 mg/dL (60-115); Potassium 4.1 mmol/L (3.3-5.1); Sodium 144 mmol/L (135-145); Total Protein 6.9 g/dL (6.5-8.0)
[2025-01-14 09:23] LABS: Carbohydrate Antigen 19-9 17 U/mL (<34)
== END 2025-01-13 09:25 | disposition home or self-care (01) ==
LOC: HO.LAB 09:24
PROVIDERS: PCP Internal Medicine Medical Oncology; Visit Provider Internal Medicine Medical Oncology
DX: K86.2 Cyst of pancreas (principal)
CPT/HCPCS: 36415; 80053; 85025; 86301

== ENCOUNTER 2025-06-26 15:36 | Outpatient (REF) | payer BC, SELFPAY ==
--- NOTE | ~2025-06-26 | MR_ITS ---
EXAMINATION: MR ABDOMEN WITHOUT AND WITH CONTRAST CLINICAL INFORMATION: Pancreatic cyst. Follow-up. COMPARISON: April 20, 2024. TECHNIQUE: MR abdomen was performed without and with use of 5.5 mL intravenous gadolinium based IV contrast without reported immediate complications. Postcontrast images are performed in multiphase dynamic sequences. Imaging was performed in 3 planes. FINDINGS: Abundant stool throughout the large intestine. LUNG BASES: No signal abnormality or enhancing mass. LIVER, GALLBLADDER, AND BILIARY TREE: Liver measures 16 cm. There are a few, scattered less than 2 m nonenhancing fluid signal characteristic lesions. The main portal veins, hepatic veins and intrahepatic portion of the IVC are patent. No enhancing mass the arterial phase or portal venous phase. Fluid-filled nondistended. No pericholecystic fluid collection or gallbladder wall thickening. Common bile duct measures 6 mm. No intraluminal signal abnormality. PANCREAS: There is linear cluster of 18 mm thin septated nonenhancing fluid signal characteristic lesions within the head and uncinate process. There is an 11 mm thin septated nonenhancing fluid signal characteristic lesion in the tail of pancreas. There is a cluster of less than 6 mm thin septated nonenhancing fluid signal in the correct cystic lesions in the body tail junction. The main pancreatic duct measures 2 mm. No peripancreatic fluid collection. SPLEEN: 9 cm. No solid or cystic mass. ADRENAL GLANDS: No nodular lesions. KIDNEYS AND URETERS: No enhancing mass. Normal enhancement of the renal parenchyma. No hydronephrosis. 8 mm nonenhancing fluid signal characteristic lesion in the upper pole left kidney. No dilatation of the ureters. GASTROINTESTINAL TRACT: Abundant stool, large intestine. Small hiatal hernia.. ABDOMINAL WALL: No umbilical hernia. LYMPH NODES: No mesenteric or retroperitoneal lymphadenopathy. VASCULAR: No aneurysm or dissection, abdominal aorta. OSSEOUS STRUCTURES: Multilevel thoracolumbar spondylosis pronounced at L5-S1 with a 4.5 mm disc herniation. Bone marrow inhomogeneity. Left perineural cysts, L3-4. Bilateral perineural cysts at T11-12 18 mm nonenhancing cystic lesion, left adnexa. MR/MR abdomen wo/w con IMPRESSION: Thin septated nonenhancing cluster of cystic lesions, body tail and head uncinate processes. Intraductal papillary mucinous neoplasm, branch duct type should be considered. Subcentimeter simple hepatic cyst. Bosniak type I cyst, left kidney. 18 mm cystic lesion, left adnexa. Electronically signed by: Winston Holloway MD 06/27/2025 07:15 AM EST
== END 2025-06-26 15:37 | disposition home or self-care (01) ==
LOC: HO.MRI 15:36
PROVIDERS: PCP Internal Medicine Medical Oncology; Visit Provider Internal Medicine Medical Oncology
DX: K86.2 Cyst of pancreas (principal); D13.6 Benign neoplasm of pancreas
CPT/HCPCS: 74183; A9585

== ENCOUNTER → 2025-06-26 16:05 | Outpatient (BNV) | payer BC, SELFPAY | PROVIDERS: PCP Internal Medicine Medical Oncology; Visit Provider Radiology Diagnostic Radiology | DX: K86.2 Cyst of pancreas (principal) | CPT/HCPCS: 74183 ==

== ENCOUNTER 2025-07-04 15:23 | Outpatient (REF) | payer BC, SELFPAY | END 2025-07-04 15:24 | disposition home or self-care (01) | LOC: HO.MAMMO 15:23 | PROVIDERS: PCP Internal Medicine Medical Oncology; Visit Provider Internal Medicine Medical Oncology | DX: Z12.31 Encounter for screening mammogram for malignant neoplasm of breast (principal) | CPT/HCPCS: 77063; 77067 ==

== ENCOUNTER → 2025-07-04 15:30 | Outpatient (BNV) | payer BC, SELFPAY | PROVIDERS: PCP Internal Medicine Medical Oncology; Visit Provider Internal Medicine | DX: Z12.31 Encounter for screening mammogram for malignant neoplasm of breast (principal) | CPT/HCPCS: 77063; 77067 ==